=== PATIENT | female | born 1995 | race Two or more races ===

== ENCOUNTER → 2024-10-12 | Outpatient (REF) | payer BC | LOC: M SFHCWAGY 17:16 | PROVIDERS: ATTEND Obstetrics & Gynecology | DX: Z36.89 Encounter for other specified antenatal screening (principal); Z3A.35 35 weeks gestation of pregnancy ==

== ENCOUNTER 2024-11-03 07:09 | Inpatient (IN) | payer BC ==
[~2024-11-03] VITALS: Ht 157.5 cm; Wt 79.8 kg
[2024-11-03] VITALS (32 sets, daily range): BP systolic 101–126; BP diastolic 49–71; O2SAT 95–99
[~2024-11-03 07:09] MED LIST: MERC50TA2 PO; MULTTAB20 PO; OMEGCAP4 PO
[2024-11-03] MEDS ORDERED: METHYLERGONOVINE MALEATE 0.2MG/ML 1ML VIAL IM PRN (07:55)
[2024-11-03] MEDS ORDERED: TRANEXAMIC ACID INJection 1,000 MG in NS 100 ML IV PRN (07:55)
[2024-11-03] MEDS ORDERED: OXYTOCIN DRIP 30 UNITS in IV 1 EA IV PRN (07:55)
[2024-11-03] MEDS ORDERED: LIDOCAINE 1% MDV 20ML VIAL INFIL PRN (07:55)
[2024-11-03] MEDS ORDERED: HOME MED LIST COMPLETE! XX SCH (08:20)
[2024-11-03] MEDS: LACTATED RINGER'S 1000 ML IV STA (08:23)
[2024-11-03] MEDS: ceFAZolin SODIUM 2 GM in DEXTROSE 5% (D5W) ADV/MINI-BAG 50 ML IV ONE (08:31)
[2024-11-03] MEDS: BICITRA 30ML SOLN UDC PO ONE (08:31)
[2024-11-03] MEDS: LR 1,000 ML IV SCH ×2 (08:31→11:56)
[2024-11-03 08:54] LABS: HEMATOCRIT 37.6 % (36.0-47.0); HEMOGLOBIN 12.4 g/dl (12.0-15.5); MEAN CORPUSCULAR HEMOGLOBIN 30.5 pg (27.0-33.0); MEAN CORPUSCULAR VOLUME 92.4 fl (80.0-96.0); PLATELET COUNT, AUTOMATED 167 10^3/uL (150-450); RED BLOOD COUNT 4.07 10^6/uL (4.00-5.40); WHITE BLOOD COUNT 10.3 10^3/uL (4.0-10.0)
[2024-11-03] MEDS ORDERED: OXYTOCIN INJ 10UNITS/ML 1ML VIAL As Ordered ONE (08:59)
[2024-11-03] MEDS ORDERED: METOCLOPRAMIDE INJ 10MG/2ML VIAL As Ordered ONE (08:59)
[2024-11-03] MEDS ORDERED: OXYTOCIN 30UNITS IN 0.9% NaCl 500ML IV BAG As Ordered ONE (08:59)
[2024-11-03] MEDS ORDERED: MORPHINE PRES-FREE INJ 10 MG/10 ML VIAL As Ordered ONE (08:59)
[2024-11-03] MEDS ORDERED: ONDANSETRON 4MG 2ML VIAL As Ordered ONE (08:59)
[2024-11-03 09:20] LABS: HEPATITIS B SURFACE ANTIBODY NEGATIVE (POSITIVE)
[2024-11-03 09:45] LABS: HIV 1&2 SCREEN NEGATIVE (NEGATIVE)
[2024-11-03 09:53] LABS: HEPATITIS C VIRUS ABY INDEX 0.04 INDEX (<0.8)
[2024-11-03] MEDS ORDERED: KETOROLAC 30 MG/ML 1ML VIAL As Ordered ONE (10:17)
[2024-11-03 10:27] LABS: CORD GAS ABE V -3.6; CORD GAS HCO3 V 21.3 MMOL/L; CORD GAS O2 SAT V 94.9 %; CORD GAS PCO2 V 38.3 mmHg; CORD GAS PH V 7.364 UNITS; CORD GAS PO2 V 59.8 mmHg; CORD GAS SBC V 21.4 MMOL/L; CORD GAS TCO2 V 22.5 MMOL/L
[2024-11-03] MEDS ORDERED: RHOGAM 300MCG (1500IU) INJ IM SCH (10:55)
[2024-11-03] MEDS ORDERED: **NOTE PATIENT COMMENT** MISC XX SCH (11:55)
[2024-11-03] MEDS: SLF 3 ML SYR IV SCH (11:55)
[2024-11-03] MEDS ORDERED: diphenhydrAMINE 50MG/ML VIAL IV PRN (11:55)
[2024-11-03] MEDS ORDERED: NALOXONE INJ 0.4MG/1ML VIAL IV PRN ×2 (11:55)
[2024-11-03] MEDS ORDERED: ONDANSETRON 4MG 2ML VIAL IV PRN (11:55)
[2024-11-03] MEDS ORDERED: fentaNYL 100 MCG/2 ML INJECTION IV PRN (11:55)
[2024-11-03] MEDS: METOCLOPRAMIDE INJ 10MG/2ML VIAL IV PRN (15:21)
[2024-11-03] MEDS: KETOROLAC 30 MG/ML 1ML VIAL IV SCH (15:41)
[2024-11-03] MEDS: ONDANSETRON 4MG TAB PO SCH (21:41)
[2024-11-04] MEDS: METOCLOPRAMIDE 10MG TAB PO SCH (01:16)
[2024-11-04 02:00] VITALS: BP 108/57; O2SAT 96
[2024-11-04 06:00] VITALS: BP 110/55; O2SAT 98
[2024-11-04] MEDS: PERCOCET 5MG/325MG TAB PO PRN (06:04)
[2024-11-04 06:43] LABS: HEMATOCRIT 38.7 % (36.0-47.0); HEMOGLOBIN 12.6 g/dl (12.0-15.5); MEAN CORPUSCULAR HEMOGLOBIN 30.8 pg (27.0-33.0); MEAN CORPUSCULAR HGB CONC 32.6 g/dl (32.0-36.5); MEAN CORPUSCULAR VOLUME 94.6 fl (80.0-96.0); PLATELET COUNT, AUTOMATED 203 10^3/uL (150-450); RED BLOOD COUNT 4.09 10^6/uL (4.00-5.40); WHITE BLOOD COUNT 13.5 10^3/uL (4.0-10.0)
[2024-11-04] MEDS ORDERED: COLA100C5 PO (06:44)
[2024-11-04] MEDS ORDERED: IBUP80TA PO (06:44)
[2024-11-04] MEDS ORDERED: OXYC1TAB23 PO (06:44)
[2024-11-04] MEDS: PRENATAL VITAMINS CHEWABLE TABLET PO SCH (07:58)
[2024-11-04] MEDS: DOCUSATE SODIUM 100MG CAPSULE PO PRN (07:58)
[2024-11-04 10:00] VITALS: BP 119/63; O2SAT 98
[2024-11-04] MEDS: SIMETHICONE 80MG CHEW TAB PO PRN (10:11)
[2024-11-04] MEDS: IBUPROFEN 800 MG TAB PO SCH (12:37)
[2024-11-04 14:00] VITALS: BP 127/60; O2SAT 99
[2024-11-04 17:54] VITALS: BP 125/66; O2SAT 99
[2024-11-04 22:00] VITALS: BP 121/56; O2SAT 96
[2024-11-05 02:00] VITALS: BP 114/53; O2SAT 97
[2024-11-05 06:00] VITALS: BP 105/57; O2SAT 100
[2024-11-05] MEDS ORDERED: MEASLES,MUMPS,RUBELLA VACCINE INJ (MMR-II) SC.IMMUN ONE (09:00)
[2024-11-05] MEDS: PERCOCET 5MG/325MG TAB PO PRN (12:42)
== END 2024-11-05 13:20 | disposition home or self-care (01) | DRG 540 ==
LOC: M LDI 07:09 → M OBS 12:14
PROVIDERS: ADMIT Specialist; ATTEND Specialist
PROC: 10D00Z1 Extraction of Products of Conception, Low, Open Approach (ICD-10-PCS; principal; 2024-11-03)
PROC: 0UB70ZZ Excision of Bilateral Fallopian Tubes, Open Approach (ICD-10-PCS; 2024-11-03)
DX: O34.211 Maternal care for low transverse scar from previous cesarean delivery (principal); Z30.2 Encounter for sterilization; Z3A.39 39 weeks gestation of pregnancy; Z37.0 Single live birth